=== PATIENT | female | born 1990 | race Caucasian/White ===

== ENCOUNTER 2022-08-22 20:11 | Emergency (ER) | payer MEDICAID | END 2022-08-22 20:54 | disposition home or self-care (01) | LOC: FB.ED 20:11 | DX: T19.2XXA Foreign body in vulva and vagina, initial encounter (principal); Z88.5 Allergy status to narcotic agent; Z88.8 Allergy status to other drugs, medicaments and biological substances | CPT/HCPCS: 81025; 99284 ==